=== PATIENT | male | born 1990 | race Caucasian/White ===

== ENCOUNTER 2024-04-14 10:11 | Emergency (ER) | payer OTHER ==
[2024-04-14 10:16] VITALS: BP 151/82; PULSE 67; RESP 16; TEMP 98.1; BMI 23.7
[2024-04-14] MEDS ORDERED: ACETAMINOPHEN 500 MG TABLET (FP) ONE (10:33)
[2024-04-14] MEDS: ACETAMINOPHEN 500 MG TABLET (FP) PO ONE (10:36)
== END 2024-04-14 11:53 | disposition home or self-care (01) ==
LOC: FER 10:11
DX: M79.671 Pain in right foot (principal); M79.672 Pain in left foot
CPT/HCPCS: 73630-TC-LT; 73630-TC-RT-FY; 99284-25